=== PATIENT | female | born 1990 | race Caucasian/White ===

== ENCOUNTER 2021-06-13 21:08 | Emergency (ER) | payer OTHER ==
[~2021-06-13] VITALS: Ht 162.6 cm; Wt 77.1 kg
[~2021-06-13 21:08] MED LIST: CHLGLU.12S MT; CODACE30 PO; IBUP800 PO; METR250 PO; NAPR500 PO; NIFE60ER PO; Roxicet 5-3251 EACH PO; Verotin-Gr Cap1 EACH PO; [UNRECOGNIZED DRUG - OTHER]
== END 2021-06-13 22:20 | disposition home or self-care (01) ==
LOC: ER 21:08
DX: U07.1 COVID-19 (principal); Z88.0 Allergy status to penicillin
CPT/HCPCS: 99284